=== PATIENT | female | born 1970 | race African-American/Black ===

== ENCOUNTER 2021-02-10 14:12 | Inpatient (IN) | payer OTHER ==
[2021-02-10 15:18] VITALS: BMI 24.4
[2021-02-10] MEDS ORDERED: ACETAMINOPHEN 325 MG TABLET (FP) PO PRN ×2 (15:49)
[2021-02-10] MEDS ORDERED: BISMUTH SUBSALICYLATE 524 MG/30 ML UD PO PRN (15:49)
[2021-02-10] MEDS ORDERED: IBUPROFEN 400 MG TABLET (FP) PO PRN (15:49)
[2021-02-10] MEDS ORDERED: ONDANSETRON *ODT* 4 MG TABLET SL PRN (15:49)
[2021-02-10] MEDS ORDERED: MAGNESIUM CITRATE 300 ML BOTTLE PO PRN (15:49)
[2021-02-10] MEDS ORDERED: NICOTINE POLACRILEX 2 MG GUM BUC PRN (15:49)
[2021-02-10] MEDS ORDERED: MENTHOL/PHENOL 1 EACH UD MM PRN (15:49)
[2021-02-10] MEDS ORDERED: MAG HYDROX/AL HYDROX/SIMETH 30 ML UNIT-DOSE CUP PO PRN (15:49)
[2021-02-10] MEDS ORDERED: MAGNESIUM HYDROX 2400MG/30ML ORAL SUSPENSION 30 ML CUP PO PRN (15:49)
[2021-02-10] MEDS ORDERED: chlordiazePOXIDE HCL 25 MG CAPSULE PO PRN (15:52)
[2021-02-10] MEDS: chlordiazePOXIDE HCL 25 MG CAPSULE PO SCH ×2 (18:00→22:57)
[2021-02-10] MEDS ORDERED: traZODone HCL 50 MG TABLET (FP) PO SCH (22:00)
[2021-02-10] MEDS ORDERED: QUEtiapine FUMARATE 400 MG TABLET PO ONE (22:00)
[2021-02-10] MEDS ORDERED: DIVALPROEX NA *ER* EXTEND REL 250 MG TABLET.SA PO ONE (22:00)
[2021-02-10] MEDS: THIAMINE HCL 100 MG TABLET (FP) PO SCH (22:57)
[2021-02-10] MEDS: GEMFIBROZIL 600 MG TABLET (FP) PO SCH (22:57)
[2021-02-10] MEDS: MELATONIN 5 MG TABLETS PO SCH (22:58)
[2021-02-11] MEDS: chlordiazePOXIDE HCL 25 MG CAPSULE PO SCH ×4 (06:11→22:22)
[2021-02-11] MEDS ORDERED: PANTOPRAZOLE 40 MG TABLET PO SCH (10:00)
[2021-02-11] MEDS: amLODIPine BESYLATE 5 MG TABLET (FP) PO SCH (10:42)
[2021-02-11] MEDS: GEMFIBROZIL 600 MG TABLET (FP) PO SCH ×2 (10:42→22:21)
[2021-02-11] MEDS: PANTOPRAZOLE 20 MG TABLET PO SCH (10:42)
[2021-02-11] MEDS: NICOTINE 14 MG/24 HOURS TOPICAL PATCH TD SCH (10:43)
[2021-02-11] MEDS: DIVALPROEX SODIUM 500 MG TABLET E.C. PO SCH ×2 (10:45→22:21)
[2021-02-11] MEDS: QUEtiapine FUMARATE 50 MG TABLET PO SCH (10:45)
[2021-02-11] MEDS: PRENATAL VITAMINS W/ FOLIC ACID TABLET (FP) PO SCH (10:48)
[2021-02-11 12:42] LABS: HEMATOCRIT 33.2 % (32.4-45.2); HEMOGLOBIN 11.6 GM/dL (10.7-15.3); MCHC 34.9 g/dl (32.0-36.0); MEAN PLT VOLUME 8.5 fl (7.5-11.1); PLATELET COUNT 269 K/MM3 (134-434); RBC 3.04 M/mm3 (3.60-5.2); RDW 16.6 % (11.6-15.6); WHITE BLOOD COUNT 4.4 K/mm3 (4.0-10.0)
[2021-02-11 12:49] LABS: ALBUMIN 2.8 g/dl (3.4-5.0); CALCIUM 8.8 mg/dL (8.5-10.1)
[2021-02-11 12:51] LABS: BLOOD UREA NITROGEN 4.9 mg/dL (7-18)
[2021-02-11 12:54] LABS: BILIRUBIN,TOTAL 0.7 mg/dL (0.2-1); CREATININE 0.6 mg/dL (0.55-1.3); TOT PROT 6.2 g/dl (6.4-8.2)
[2021-02-11 13:00] LABS: POTASSIUM 3.2 mmol/L (3.5-5.1)
[2021-02-11] MEDS ORDERED: POTASSIUM CHLORIDE ORAL LIQUID 20 MEQ/15 ML PO ONE ×2 (15:00→19:00)
[2021-02-11] MEDS: MELATONIN 5 MG TABLETS PO SCH (22:21)
[2021-02-11] MEDS: QUEtiapine FUMARATE 200 MG TABLET PO SCH (22:21)
[2021-02-11] MEDS: THIAMINE HCL 100 MG TABLET (FP) PO SCH (22:22)
[2021-02-12] MEDS: chlordiazePOXIDE HCL 25 MG CAPSULE PO SCH ×4 (05:55→22:32)
[2021-02-12] MEDS ORDERED: QUEtiapine FUMARATE 25 MG TABLET ONE (08:40)
[2021-02-12] MEDS: DIVALPROEX SODIUM 500 MG TABLET E.C. PO SCH ×2 (10:07→22:31)
[2021-02-12] MEDS: QUEtiapine FUMARATE 50 MG TABLET PO SCH (10:08)
[2021-02-12] MEDS: amLODIPine BESYLATE 5 MG TABLET (FP) PO SCH (10:08)
[2021-02-12] MEDS: NICOTINE 14 MG/24 HOURS TOPICAL PATCH TD SCH (10:08)
[2021-02-12] MEDS: PANTOPRAZOLE 20 MG TABLET PO SCH (10:08)
[2021-02-12] MEDS: PRENATAL VITAMINS W/ FOLIC ACID TABLET (FP) PO SCH (10:08)
[2021-02-12] MEDS: GEMFIBROZIL 600 MG TABLET (FP) PO SCH ×2 (11:04→22:31)
[2021-02-12] MEDS: hydrOXYzine PAMOATE 25 MG CAPSULE (FP) PO PRN (17:36)
[2021-02-12] MEDS: THIAMINE HCL 100 MG TABLET (FP) PO SCH (22:31)
[2021-02-12] MEDS: QUEtiapine FUMARATE 200 MG TABLET PO SCH (22:32)
[2021-02-12] MEDS: MELATONIN 5 MG TABLETS PO SCH (22:32)
[2021-02-13] MEDS ORDERED: chlordiazePOXIDE HCL 10 MG CAPSULE PO PRN
[2021-02-13] MEDS: chlordiazePOXIDE HCL 10 MG CAPSULE PO SCH ×4 (06:18→22:19)
[2021-02-13] MEDS: PANTOPRAZOLE 20 MG TABLET PO SCH (10:14)
[2021-02-13] MEDS: DIVALPROEX SODIUM 500 MG TABLET E.C. PO SCH ×2 (10:15→22:18)
[2021-02-13] MEDS: amLODIPine BESYLATE 5 MG TABLET (FP) PO SCH (10:15)
[2021-02-13] MEDS: PRENATAL VITAMINS W/ FOLIC ACID TABLET (FP) PO SCH (10:16)
[2021-02-13] MEDS: QUEtiapine FUMARATE 50 MG TABLET PO SCH (10:17)
[2021-02-13] MEDS: NICOTINE 14 MG/24 HOURS TOPICAL PATCH TD SCH (10:17)
[2021-02-13] MEDS ORDERED: QUEtiapine FUMARATE 50 MG TABLET PO ONE (10:27)
[2021-02-13] MEDS: GEMFIBROZIL 600 MG TABLET (FP) PO SCH ×2 (10:48→22:19)
[2021-02-13] MEDS: hydrOXYzine PAMOATE 25 MG CAPSULE (FP) PO PRN (10:49)
[2021-02-13] MEDS ORDERED: IBUPROFEN 600 MG TABLET (FP) PO PRN (11:05)
[2021-02-13] MEDS: METHOCARBAMOL 500 MG TABLET PO PRN (12:57)
[2021-02-13] MEDS: MELATONIN 5 MG TABLETS PO SCH (22:19)
[2021-02-13] MEDS: THIAMINE HCL 100 MG TABLET (FP) PO SCH (22:19)
[2021-02-13] MEDS: QUEtiapine FUMARATE 400 MG TABLET PO SCH (22:19)
[2021-02-14] MEDS: chlordiazePOXIDE HCL 10 MG CAPSULE PO SCH ×2 (06:17→18:20)
[2021-02-14] MEDS: GEMFIBROZIL 600 MG TABLET (FP) PO SCH ×2 (09:57→22:43)
[2021-02-14] MEDS: PRENATAL VITAMINS W/ FOLIC ACID TABLET (FP) PO SCH (09:57)
[2021-02-14] MEDS: QUEtiapine FUMARATE 300 MG TABLET PO SCH (09:57)
[2021-02-14] MEDS: DIVALPROEX SODIUM 500 MG TABLET E.C. PO SCH ×2 (09:57→22:42)
[2021-02-14] MEDS: PANTOPRAZOLE 20 MG TABLET PO SCH (09:57)
[2021-02-14] MEDS: amLODIPine BESYLATE 5 MG TABLET (FP) PO SCH (09:57)
[2021-02-14] MEDS: METHOCARBAMOL 500 MG TABLET PO PRN (09:57)
[2021-02-14] MEDS: NICOTINE 14 MG/24 HOURS TOPICAL PATCH TD SCH (10:34)
[2021-02-14 15:43] LABS: URINE APPEARANCE Clear; URINE BILIRUBIN Negative (NEGATIVE); URINE COLOR Yellow; URINE GLUCOSE (UA) Negative (NEGATIVE); URINE KETONE Negative (NEGATIVE); URINE LEUK ESTERASE Trace (NEGATIVE); URINE NITRITE Negative (NEGATIVE); URINE PROTEIN Negative (NEGATIVE); URINE UROBILINOGEN 0.2 mg/dL (0.2-1.0)
[2021-02-14] MEDS: THIAMINE HCL 100 MG TABLET (FP) PO SCH (22:43)
[2021-02-14] MEDS: QUEtiapine FUMARATE 400 MG TABLET PO SCH (22:43)
[2021-02-14] MEDS: MELATONIN 5 MG TABLETS PO SCH (22:44)
[2021-02-15] MEDS ORDERED: chlordiazePOXIDE HCL 10 MG CAPSULE PO ONE (05:00)
[2021-02-15] MEDS: DIVALPROEX SODIUM 500 MG TABLET E.C. PO SCH (09:11)
[2021-02-15] MEDS: amLODIPine BESYLATE 5 MG TABLET (FP) PO SCH (09:11)
[2021-02-15] MEDS: QUEtiapine FUMARATE 300 MG TABLET PO SCH (09:11)
[2021-02-15] MEDS: PANTOPRAZOLE 20 MG TABLET PO SCH (09:11)
[2021-02-15] MEDS: PRENATAL VITAMINS W/ FOLIC ACID TABLET (FP) PO SCH (09:11)
[2021-02-15] MEDS: NICOTINE 14 MG/24 HOURS TOPICAL PATCH TD SCH (09:11)
[2021-02-15] MEDS: GEMFIBROZIL 600 MG TABLET (FP) PO SCH (09:12)
[2021-02-15 10:51] VITALS: BP 124/88; PULSE 94; TEMP 97.3
== END 2021-02-15 09:20 | disposition home or self-care (01) | DRG 775 ==
LOC: YASAS 14:12 → Y6N 16:33
PROVIDERS: ADMIT Allergy & Immunology; ATTEND Allergy & Immunology
PROC: HZ2ZZZZ Detoxification Services for Substance Abuse Treatment (ICD-10-PCS; principal; 2021-02-10)
DX: F10.230 Alcohol dependence with withdrawal, uncomplicated (principal); F12.20 Cannabis dependence, uncomplicated; F17.210 Nicotine dependence, cigarettes, uncomplicated; F10.280 Alcohol dependence with alcohol-induced anxiety disorder; F10.282 Alcohol dependence with alcohol-induced sleep disorder; F10.24 Alcohol dependence with alcohol-induced mood disorder; F25.9 Schizoaffective disorder, unspecified; F31.9 Bipolar disorder, unspecified; D64.9 Anemia, unspecified; G40.89 Other seizures; I10 Essential (primary) hypertension; J45.20 Mild intermittent asthma, uncomplicated; K29.70 Gastritis, unspecified, without bleeding; K21.9 Gastro-esophageal reflux disease without esophagitis; M19.90 Unspecified osteoarthritis, unspecified site; Z86.19 Personal history of other infectious and parasitic diseases; Z88.1 Allergy status to other antibiotic agents
CPT/HCPCS: 36415; 80053; 80164; 81003; 81025; 84132; 85027; 86780; 93005; 93010; C9803; U0003